=== PATIENT | female | born 1995 | race Native Hawaiian/Other Pacific Islander ===

== ENCOUNTER 2016-11-21 11:19 | Emergency (ER) | payer OTHER ==
[~2016-11-21] VITALS: Ht 167.6 cm; Wt 50.9 kg
[2016-11-21 11:48] VITALS: BP 124/85; PULSE 82; RESP 16; O2SAT 100
[2016-11-21] MEDS ORDERED: 0.9% Sodium Chloride 1,000 ML IV ONE ×2 (13:58→14:45)
--- NOTE | 2016-11-21 13:58 | ED.REPORT ---
HPI-Abd Pain F Under 40 Date of Service Nov 21, 2016 ED Provider: Dr. Ellis Pt is a 21 y/o female presenting to the ED c/o nausea and vomiting onset xx. Nursing Notes Stated Complaint: POSS , NAUSEA Chief Complaint: General Complaint Nursing Notes Reviewed: Yes Allergies: Coded Allergies: No Known Allergies (Verified Allergy, Unknown, 11/21/16) General Time Seen by MD: 13:58 Chief Complaint Vomiting moderate Hx Obtained From: Patient Arrived By: Walk-in Past Medical History Ambulatory Status Independent Review of Systems GI: Reports: Nausea, Vomiting Complete sys rev & neg: except as marked. Physical Exam Initial Vital Signs Vital Signs (First) Date Time Temp Pulse Resp B/P Pulse Ox O2 Delivery O2 Flow Rate FiO2 11/21/16 11:48 36.7 82 16 124/85 100 Room Air Initial VS: Reviewed Interpretation & Diagnostics Lab Results Interpretation Result Diagram: 11/21/16 1415 11/21/16 1415 Test 11/21/16 14:15 White Blood Count 11.4th/mm3 (3.8-10.1) Red Blood Count 4.89mil/mm3 (3.90-5.20) Hemoglobin 13.9g/dL (12.0-15.6) Hematocrit 40.5% (35.0-46.0) Mean Corpuscular Volume 82.8fL (81-100) Mean Corpuscular Hemoglobin 28.4pg (27.0-35.0) Mean Corpuscular Hemoglobin Concent 34.3% (32.0-37.0) Red Cell Distribution Width 12.8% (12.3-15.4) Platelet Count 289bil/L (150-400) Neutrophils (%) (Auto) 72.8% (40-74) Lymphocytes (%) (Auto) 20.0% (14-46) Monocytes (%) (Auto) 5.6% (4-12) Eosinophils (%) (Auto) 1.2% (0-5) Basophils (%) (Auto) 0.2% (0-3) Urine Color Yellow (YELLOW) Urine Appearance Slightly cloudy Urine pH 8.0 (5.0-8.0) Urine Specific [place] 1.015 (1.003-1.035) Urine Protein Negativemg/dL (NEG,TRACE) Urine Glucose (UA) Negativemg/dL (NEGATIVE) Urine Ketones 15mg/dL (NEGATIVE) Urine Occult Blood Negative (NEGATIVE) Urine Nitrite Negative (NEGATIVE) Urine Bilirubin Negative (NEGATIVE) Urine Urobilinogen Normalmg/dL (NORMAL) Urine Leukocyte Esterase Negative (NEGATIVE) Urine RBC 0-2/hpf (0-2) Urine WBC 0-5/hpf (0-5) Urine Epithelial Cells Occasional/hpf (NONE-MOD) Urine Crystals Amorphous phosphates Urine Bacteria Few/hpf (NONE-FEW) Urine Hyaline Casts None/lpf (NONE) Urine Granular Casts None seen (NONE SEEN) Urine Waxy Casts None seen (NONE SEEN) Urine Red Blood Cell Casts None seen (NONE SEEN) Urine White Blood Cell Casts None seen (NONE SEEN) Urine Mucus None seen (None Seen) Urine Trichomonas None seen (NONE SEEN) Urine Yeast None (NONE SEEN) Urinalysis Comment None Urine Culture Reflexed Not indicated Sodium Level 136mEq/L (134-144) Potassium Level 3.2mEq/L (3.5-5.2) Chloride Level 101mEq/L (97-108) Carbon Dioxide Level 21mmol/L (18-29) Blood Urea Nitrogen 5mg/dL (6-20) Creatinine 0.48mg/dL (0.57-1.00) Estimat Glomerular Filtration Rate 236mL/min (>59) Glucose Level 91mg/dL (60-99) Calcium Level 9.0mg/dL (8.5-10.1) Magnesium Level 1.9mg/dL (1.6-2.6) Total Bilirubin 0.4mg/dL (0.0-1.2) Aspartate Amino Transf (AST/SGOT) 13U/L (0-50) Alanine Aminotransferase (ALT/SGPT) 8U/L (0-32) Alkaline Phosphatase 53U/L (25-150) Total Protein 7.3g/dL (6.4-8.4) Albumin 4.6g/dL (3.4-5.0) Lipase 27U/L (13-60) Re-Eval/Medical Decision Counseled Regarding: Diagnosis, Lab results, Need for follow-up, When/why to return to ED Discharge & Departure Disposition: Home Discharge Condition All VS Reviewed: Yes Condition: Stable Referrals: NOPCP (PCP) Scribe Attestation Portions of this note were transcribed by Juvencio Kidd. I, Dr. Ellis personally performed the history, physical exam and medical decision-making; I reviewed and confirmed the accuracy of the information in the transcribed note. Signed by Camden Vega, 11/21/16 - Agustin Uribe MD Nov 21, 2016 13:58 JUVENCIO KIDD Nov 21, 2016 14:01
[2016-11-21 14:22] LABS: BASOPHILS % (AUTO) 0.2 % (0-3); EOSINOPHILS % (AUTO) 1.2 % (0-5); MONOCYTES % (AUTO) 5.6 % (4-12); Mean Corpuscular Hemoglobin 28.4 pg (27.0-35.0); Mean Corpuscular Volume 82.8 fL (81-100); NEUTROPHILS % (AUTO) 72.8 % (40-74); Platelet Count 289 bil/L (150-400)
[2016-11-21 14:30] LABS: APPEARANCE,URINE SLIGHTLY CLOUDY (CLEAR,HAZY); COLOR,URINE YELLOW (YELLOW); OCCULT BLOOD,URINE NEGATIVE (NEGATIVE); UROBILINOGEN,URINE NORMAL (NORMAL)
--- NOTE | 2016-11-21 14:39 | ED.REPORT ---
HPI-Abd Pain F Under 40 Date of Service Nov 21, 2016 ED Provider: Agustin Ellis MD History of Present Illness: Patient is a 21 y.o. F , LMP aproximated to be Sep 24 2016 with estimated due date Jul 01 2017 and estimated gestational age of 8 weeks and 2 days. Presents to ED with two week history of nausea and vomiting, in the past 24 hours vomited "more than I can count on my hands" vomiting throughout the night. Assocaited with constipation, feeling warm, dizziness, decreased appetite. Denies blood in vomit, coughing up blood, chills, diarrhea, syncope, changes in vision, headache, abdominal pain, vaginal dishcarge, vaginal bleeding. Patient has been to multiple times in the past two weeks for refill of Zofran medication and IV fluids. DC with Zofran patient has been taking one tab 4 mg every 8 hours. Patient has appointment with [facility] 12/04/16 to establish care. NO PCP Nursing Notes Stated Complaint: POSS , NAUSEA Chief Complaint: General Complaint Nursing Notes Reviewed: Yes Allergies: Coded Allergies: No Known Allergies (Verified Allergy, Unknown, 11/21/16) General Time Seen by MD: 14:20 Chief Complaint Nausea, , 1st trimester, Vomiting severe Sudden in Onset?: Yes Symptom Duration: Constant Recent Healthcare: No recent doctor visit (Scheduled visit to [facility] ) Similar Sx Previous: Yes Past Medical History Ambulatory Status Independent Review of Systems Basic Review of Systems Eyes: Vision NL, No discharge ENT: Hearing NL, No pain, No nasal congestion, No pharyngeal pain Skin: No bruising, No rash, No itch Constitutional: Reports: Fever, Denies: Chills Respiratory: Denies: Hemoptysis Cardiovascular: Denies: Chest pain, Dyspnea on exertion, Edema GI: Reports: Constipation, Denies: Bloody/tarry stool, Diarrhea Female: Reports: , Denies: Dysuria, Flank pain, Hematuria, Incontinence, Pelvic pain, Vaginal bleeding - abnl, Vaginal discharge Complete sys rev & neg: except as marked. Physical Exam Initial Vital Signs Vital Signs (First) Date Time Temp Pulse Resp B/P Pulse Ox O2 Delivery O2 Flow Rate FiO2 11/21/16 11:48 36.7 82 16 124/85 100 Room Air Head / Eyes: Atraumatic, Normocephalic, PERRL ENT: Mucous membranes moist, Conjunctiva normal, No scleral icterus Neck: Supple, Non-tender, Full range of motion Skin: Warm, Dry, No cyanosis Neurologic: Alert, Oriented, Nonfocal General/Constitutional: Awake, Alert, No acute distress, Well appearing Respiratory / Chest: Atraumatic, Breath sounds NL, Breath sounds = bilat, No respiratory distress, No rales, No rhonchi, No wheezing Cardiovascular: Heart rate NL, Regular rhythm, Heart sounds NL, Peripheral circulation NL Abdomen: Soft, Non-tender, McBurney's non-tender, No guarding, No rebound, BS normoactive, No distention, No hernia, No palpable mass Interpretation & Diagnostics Lab Results Interpretation Result Diagram: 11/21/16 1415 11/21/16 1415 Test 11/21/16 14:15 White Blood Count 11.4th/mm3 (3.8-10.1) Red Blood Count 4.89mil/mm3 (3.90-5.20) Hemoglobin 13.9g/dL (12.0-15.6) Hematocrit 40.5% (35.0-46.0) Mean Corpuscular Volume 82.8fL (81-100) Mean Corpuscular Hemoglobin 28.4pg (27.0-35.0) Mean Corpuscular Hemoglobin Concent 34.3% (32.0-37.0) Red Cell Distribution Width 12.8% (12.3-15.4) Platelet Count 289bil/L (150-400) Neutrophils (%) (Auto) 72.8% (40-74) Lymphocytes (%) (Auto) 20.0% (14-46) Monocytes (%) (Auto) 5.6% (4-12) Eosinophils (%) (Auto) 1.2% (0-5) Basophils (%) (Auto) 0.2% (0-3) Urine Color Yellow (YELLOW) Urine Appearance Slightly cloudy Urine pH 8.0 (5.0-8.0) Urine Specific [place] 1.015 (1.003-1.035) Urine Protein Negativemg/dL (NEG,TRACE) Urine Glucose (UA) Negativemg/dL (NEGATIVE) Urine Ketones 15mg/dL (NEGATIVE) Urine Occult Blood Negative (NEGATIVE) Urine Nitrite Negative (NEGATIVE) Urine Bilirubin Negative (NEGATIVE) Urine Urobilinogen Normalmg/dL (NORMAL) Urine Leukocyte Esterase Negative (NEGATIVE) Urine RBC 0-2/hpf (0-2) Urine WBC 0-5/hpf (0-5) Urine Epithelial Cells Occasional/hpf (NONE-MOD) Urine Crystals Amorphous phosphates Urine Bacteria Few/hpf (NONE-FEW) Urine Hyaline Casts None/lpf (NONE) Urine Granular Casts None seen (NONE SEEN) Urine Waxy Casts None seen (NONE SEEN) Urine Red Blood Cell Casts None seen (NONE SEEN) Urine White Blood Cell Casts None seen (NONE SEEN) Urine Mucus None seen (None Seen) Urine Trichomonas None seen (NONE SEEN) Urine Yeast None (NONE SEEN) Urinalysis Comment None Urine Culture Reflexed Not indicated Sodium Level 136mEq/L (134-144) Potassium Level 3.2mEq/L (3.5-5.2) Chloride Level 101mEq/L (97-108) Carbon Dioxide Level 21mmol/L (18-29) Blood Urea Nitrogen 5mg/dL (6-20) Creatinine 0.48mg/dL (0.57-1.00) Estimat Glomerular Filtration Rate 236mL/min (>59) Glucose Level 91mg/dL (60-99) Calcium Level 9.0mg/dL (8.5-10.1) Magnesium Level 1.9mg/dL (1.6-2.6) Total Bilirubin 0.4mg/dL (0.0-1.2) Aspartate Amino Transf (AST/SGOT) 13U/L (0-50) Alanine Aminotransferase (ALT/SGPT) 8U/L (0-32) Alkaline Phosphatase 53U/L (25-150) Total Protein 7.3g/dL (6.4-8.4) Albumin 4.6g/dL (3.4-5.0) Lipase 27U/L (13-60) Re-Eval/Medical Decision Med Decision/Clinical Course Med Decision/Clinical Course: Patient is a 21 y.o. F 2 weeks with clinical findings consistent with Hyperemesis graviderum and mild dehydration due to vomiting. Patient treated for nausea, vomiting, and dehydration. On laboratory exam no signs of acute infection noted, patient is slightly hypokalemic. Re-Evaluation/Progress : Time of Eval: 15:54 Patient Status: Condition improved, Complete relief Evaluation: Capillary refill normal Re-Evaluation/Progress Note: Nasuea and vomiting well controlled, patient finished second bag of fluid, discussed with patient discharge planning need to follow up [facility], no change in medication to Diclegis. Patient stated that she is feeling better and is ready for discharge. Consultation : Referral / Consult Name: Zenaida Harmon MD Consulted With: On-call physician Requested Call at: 15:10 Call Returned at: 15:10 Ship Officer: Will see in office, Agrees with eval, Agrees with plan Note: Reccomends starting patient on Diclegis and have patient call office for earlier appointment. Discharge & Departure Primary Impression: Hyperemesis gravidarum Additional Impressions: Nausea & vomiting Vomiting type: unspecified Vomiting Intractability: unspecified Qualified Code: R11.2 - Nausea with vomiting, unspecified Dehydration Hypokalemia Disposition: Home Discharge Condition Condition: Stable Patient Instructions: Dehydration (DC), Hyperemesis Gravidarum (DC) Additional Instructions: During you visit to [facility] Emergency Department we obtained blood work for infectious markers, hemoglobin levels, and electrolytes. You lab values showed mild low potassium, we treated you with oral replacement of potassium. Your vital signs were stable and safe for discharge. We will send you home with - 14 day course of Diclegis a medication used for hyperemesis gravidarum - Zofran ODT use only if you have breakthrough nausea and vomiting that Diclegis does not cover Continue to stay well hydrated with frequent small amounts of water. Do not hesitate to call emergency services or your primary care physician if you experience any of the following. - High unrelenting fevers. - Uncontrolled vomiting. - Severe hypertension. - Syncope or loss of consciousness. - Chest pain or severe shortness of breath. Please call [facility] [address] to make arrangement for an appointment sooner than Follow up with your primary care physician in 1-2 weeks time following your emergency department visit for medication checks and general well-being. [facility]: [facility] Statment Seen and examined with Dr Daniel, agree with above. copies to: [facility]); [facility] DO Nov 21, 2016 14:37 Agustin Ellis MD Nov 21, 2016 18:06
[2016-11-21 14:50] LABS: Magnesium 1.9 mg/dL (1.6-2.6)
[2016-11-21] MEDS ORDERED: Potassium Chloride 20 mEq SR Tablet PO ONE (15:15)
[2016-11-21 17:13] VITALS: BP 121/61; PULSE 72; RESP 17; O2SAT 98
== END 2016-11-21 17:58 | disposition home or self-care (01) ==
LOC: SED 11:19
DX: O21.1 Hyperemesis gravidarum with metabolic disturbance (principal); E87.6 Hypokalemia; Z3A.08 8 weeks gestation of pregnancy
CPT/HCPCS: 36415; 80053; 81000; 81025; 83690; 83735; 85025; 96360; 99284; J7030